=== PATIENT | male | born 1965 | race Caucasian/White ===

== ENCOUNTER 2023-11-20 10:20 | Observation (INO) ==
[2023-11-20] MEDS ORDERED: IOPAMIDOL 100 ML BOTTLE IV ONE (10:21)
[2023-11-20 11:15] LABS: POC Calcium, Ionized 1.2 (1.16-1.32); POC Creatinine 1.3 (0.6-1.2); POC Potassium 4.2 (3.3-5.1)
[2023-11-20 11:21] LABS: Basophils # (Auto) 0.06 K/mcL (0.00-0.30); Basophils % (Auto) 0.7 % (0.0-2.0); Eosinophils # (Auto) 0.24 K/mcL (0.00-0.70); Eosinophils % (Auto) 2.8 % (0.0-7.0); Hematocrit 50.5 % (40.1-51.0); Hemoglobin 16.4 g/dL (13.7-17.5); Lymphocytes # (Auto) 2.32 K/mcL (1.50-4.80); Lymphocytes % (Auto) 26.7 % (15.5-49.0); Mean Cell Volume 92.5 fL (80.0-100.0); Mean Corpuscular HGB Conc 32.5 g/dL (31.0-36.0); Mean Platelet Volume 10.7 fL (8.8-12.5); Monocytes # (Auto) 0.91 K/mcL (0.10-0.90); Monocytes % (Auto) 10.5 % (1.0-12.0); Platelet Count 254 K/mcL (140-440); RBC 5.46 M/mcL (4.63-6.08); Red Cell Distribution Width 13.2 % (11.5-14.5); WBC 8.7 K/mcL (4.5-11.0)
[2023-11-20 11:31] LABS: POC INR 1.3 (0.8-1.2); POC Pro Time 15.1 (11.9-14.5)
[2023-11-20 11:43] LABS: ALT/SGPT 13 U/L (<40); AST/SGOT 25 U/L (<40); Albumin 4.1 gm/dL (3.2-5.2); Alkaline Phosphatase 122 U/L (39-117); Bilirubin,Direct < 0.2 mg/dL (0-0.3); Bilirubin,Total 0.4 mg/dL (0.1-1.0); Globulin 3.2 gm/dL (2.2-3.7)
[2023-11-20] MEDS: ATORVASTATIN 40 MG TABLET PO SCH (12:10)
[2023-11-20] MEDS: ASPIRIN 81 MG TAB.CHEW CHEWED ONE (12:10)
[2023-11-20] MEDS: ATORVASTATIN 40 MG TABLET ONE (12:23)
[2023-11-20 12:51] LABS: Appearance,Urine Clear (Clear); Bilirubin,Urine Negative (Negative); Color,Urine Yellow; Culture Indicated,Urine No; Glucose,Urine (UA) Negative (Negative); Ketones,Urine Negative (Negative); Leukocyte Esterase,Urine Negative /uL (Negative); Nitrate,Urine Negative (Negative); PH,Urine 5.5 (5.0-9.0); Protein,Urine Negative (Negative); Urine Blood Negative ery/mcL (Negative); Urobilinogen,Urine Normal
[2023-11-20] MEDS ORDERED: IBUPROFEN 600 MG TABLET PO PRN (14:18)
[2023-11-20] MEDS ORDERED: hydrALAZINE 20 MG/ML VIAL IV PRN (14:18)
[2023-11-20] MEDS ORDERED: LACTULOSE 20 GM/30 ML ORAL.SOL PO PRN (14:18)
[2023-11-20] MEDS ORDERED: SENNOSIDES 1 TABLET PO PRN (14:18)
[2023-11-20] MEDS ORDERED: ONDANSETRON 4 MG/2 ML VIAL IV PRN (14:18)
[2023-11-20] MEDS ORDERED: IPRATROPIUM/ALBUTEROL 3 ML AMPUL.NEB NEB PRN (14:18)
[2023-11-20] MEDS: 0.9 % SODIUM CHLORIDE 10 ML SYRINGE IV SCH (14:55)
[2023-11-20] MEDS: GABAPENTIN 100 MG CAPSULE PO SCH (15:25)
[2023-11-20] MEDS: LORazepam 1 MG TABLET PO SCH (16:07)
[2023-11-20] MEDS: ACETAMINOPHEN 325 MG TABLET PO PRN (19:18)
[2023-11-20] MEDS: DOCUSATE SODIUM 100 MG CAPSULE PO SCH (21:28)
[2023-11-21 06:52] LABS: HDL Cholesterol 30 mg/dL (>40); LDL Cholesterol,Calculated 112 mg/dL (<100); Non-HDL Cholesterol 140 mg/dL (<130); Triglycerides 144 mg/dL (<150)
[2023-11-21 06:57] LABS: Estimated Average Glucose(eAG) 126 mg/dL
[2023-11-21] MEDS: ASPIRIN 81 MG TAB.CHEW CHEWED SCH (08:40)
== END 2023-11-21 13:56 | disposition home or self-care (01) ==
LOC: ED 10:20 → ICU 14:13 → INTOOBSV 14:13
PROVIDERS: ADMIT Internal Medicine; ATTEND Internal Medicine